=== PATIENT | female | born 1990 | race Caucasian/White ===

== ENCOUNTER 2020-07-08 19:38 | Emergency (ER) | payer BC, SELFPAY ==
--- NOTE | ~2020-07-08 | CT_ITS ---
EXAMINATION: CT abdomen pelvis wo con EXAM DATE: 07/08/2020 20:56 INDICATION: Flank pain. Hematuria. TECHNIQUE: Spiral CT of the abdomen and pelvis was performed without contrast. Axial, coronal and sag ittal images were reviewed. The dose-length product (DLP) for this examination was 213.18 mGy-cm. T he exposure was tailored according to patient size (auto mA exposure control), and iterative reconstr uction (ASIR) was used as additional dose reduction technique. There is no prior study for compariso n. FINDINGS: There is punctate right mid calyceal stone. There are no ureteral stones or hydronephrosis. The uterus is anteverted and morphologically normal. The bladder is unremarkable. The liver, spl een, adrenal glands and pancreas are unremarkable. Gallbladder is unremarkable. No biliary obstruct ion. There is no retroperitoneal or pelvic lymphadenopathy. The appendix is normal. The stomach and small bowel are unremarkable. There is expected amount of c olonic stool. No free intraperitoneal gas. The heart is normal in size. There are no pericardial or pleural effusions. The lung bases are unremarkable. There are no osteoblastic or osteolytic les ions identified. IMPRESSION: 1. Punctate nonobstructing right calyceal stone. 2. No acute findings Reviewed, dictated and finalized at location A.
[2020-07-08 19:40] VITALS: BP 132/100; PULSE 87; RESP 16; TEMP 35.9; O2SAT 100
[2020-07-08 20:18] LABS: Basophils Percent Auto 0.3 % (0.2-1.2); Eosinophils Percent Auto 0.4 % (0-4.4); Hematocrit 45.6 % (37.0-47.0); Hemoglobin 15.2 g/dL (12.0-15.0); Immature Granulocyte Absolute 0.02 K/mm3 (0.00-0.031); Immature Granulocyte Percent A 0.2 % (0-0.5); Lymphocytes Absolute Auto 2.76 K/mm3 (0.9-3.2); Lymphocytes Percent Auto 26.4 % (18.3-44.2); Mean Corpuscular HGB Conc 33.3 g/dl (32-36); Mean Corpuscular Hemoglobin 31.1 pg (26-34); Mean Corpuscular Volume 93.3 fl (80-100); Mean Platelet Volume 10.3 fl (7.4-10.4); Monocytes Absolute Auto 0.7 K/mm3 (0.1-0.6); Neutrophils Absolute Auto 6.9 K/mm3 (1.3-6.7); Neutrophils Percent Auto 65.7 % (45.5-73.1); Platelet Count Result 307 k/mm3 (150-375); Red Blood Count 4.89 M/mm3 (4.2-5.4); Red Cell Distribution Width 11.9 % (11.5-14.5); White Blood Count 10.5 K/mm3 (4.5-10.0)
[2020-07-08 20:23] LABS: Add Urine Microscopic? YES; Appearance Urine Clear (Clear); Bilirubin Urine Negative (Negative); Blood Urine 2+ (Negative); Color Urine Amber (Yellow); Glucose Urine UA Negative (Negative); Ketones Urine 2+ mg/dL (Negative); Leukocyte Esterase Ur Negative LEU/UL (Negative); Mucus Urine Rare /lpf; Nitrate Urine Negative (Negative); Protein Urine Negative (Negative); Specific Grav Ur 1.008 (1.001-1.035); Squamous Epithelial Cell Urine Moderate /hpf (Few); Urobilinogen Urine Negative mg/dL (<2.0); WBC Urine 0-3 /hpf
[2020-07-08] MEDS: ONDANSETRON INJ 4 MG/2 ML VIAL IV PUSH ×2 (20:25→21:22)
[2020-07-08] MEDS: SODIUM CHLORIDE 0.9% IV 1,000 ML 999 ML IV CONT ×2 (20:34→21:22)
[2020-07-08 20:39] LABS: Anion Gap 8 mmol/L (8-16); Blood Urea Nitrogen 5 mg/dL (7-17); Calcium 9.7 mg/dL (8.4-10.2); Carbon Dioxide 29 mmol/L (22-30); Chloride 106 mmol/L (98-107); Estimated CRCL calculation 122 ml/min; Estimated Glomerular Filt Rate > 60; Glucose 98 mg/dL (65-105); Potassium 3.6 mmol/L (3.4-5.0); Sodium 143 mmol/L (137-145)
--- NOTE | 2020-07-08 21:13 | ED.GENADULT ---
HPI - General Adult General Chief complaint: Back Pain/Injury Stated complaint: poss kidney stone Time Seen by Provider: 07/08/20 20:47 Source: patient, RN notes reviewed and old records reviewed History of Present Illness HPI narrative: 29-year-old female presents to emergency department for bilateral low back pain since Sunday. Patient states the pain is worse on the left side. She has never had this in the past before. She took naproxen earlier today to help with the symptoms. Patient was seen in urgent care earlier today, diagnosed with urinary tract infection. No vaginal bleeding or discharge. No urinary symptoms. Patient states she does have some pain intermittently in the lower part of her abdomen. Related Data Allergies Allergy/AdvReac Type Severity Reaction Status Date / Time No Known Allergies Allergy Verified 07/08/20 19:58 Review of Systems Review of Systems: Narrative: CONSTITUTIONAL: Denies fever, chills, or sweats. EYES: Denies visual changes, redness, or discharge. ENT: Denies rhinorrhea, congestion, sore throat, or otalgia. CARDIOVASCULAR: Denies chest pain, palpitations, or edema. RESPIRATORY: Denies cough or dyspnea. GASTROINTESTINAL: Reports intermittent lower abdominal pain, and nausea. No vomiting, or diarrhea. GENITOURINARY: Denies dysuria or hematuria. SKIN: Denies rash or itching. MUSCULOSKELETAL: Reports low back pain bilaterally, no joint pain, or myalgia. NEUROLOGIC: Denies headache, numbness, dizziness, or weakness. PSYCHIATRIC: Denies anxiety or depression. All systems reviewed & are unremarkable except as noted in HPI and below (ROS) Exam Narrative: Exam Narrative: GENERAL: Well-appearing, well-nourished, and in no acute distress. HEAD: Normocephalic, atraumatic. EYES: PERRLA and EOMI. ENT: Nares clear, no rhinorrhea or epistaxis. Mucous membranes moist. NECK: Supple. CHEST: Clear to auscultation. No respiratory distress. HEART: Regular rate and rhythm. No murmur heard. Normal peripheral pulses. ABDOMEN: Soft, nontender, nondistended, normal active bowel sounds. EXTREMITIES: Normal range of motion. No edema. SKIN: Warm, dry, no rash. NEURO: No focal deficits. Alert and oriented x3. PSYCH: Normal mood and affect. Course Course Emergency Course: 22:00 -reevaluated patient, no new complaints. Unremarkable CT scan. Also unremarkable labs. Concerned that patient may have passed a kidney stone. Also concern for musculoskeletal back pain. Counseled patient to follow-up with her medical provider within 1 week. Return to emergency department if symptoms persist, worsen, or other concerns. Vital Signs Vital signs: Vital Signs Temperature 35.9 C L 07/08/20 19:40 Pulse Rate 87 07/08/20 19:40 Respiratory Rate 16 07/08/20 19:40 Blood Pressure 132/100 H 07/08/20 19:40 Pulse Oximetry 100 07/08/20 19:40 Temperature 36.8 C 07/08/20 22:24 Pulse Rate 89 07/08/20 22:24 Respiratory Rate 16 07/08/20 22:24 Blood Pressure 121/74 07/08/20 22:24 Pulse Oximetry 100 07/08/20 22:24 Medical Decision Making Medical Records Medical records reviewed: Yes I reviewed the external patient's medical records. Vital Signs Vital Signs: Vital Signs Temperature 35.9 C L 07/08/20 19:40 Pulse Rate 87 07/08/20 19:40 Respiratory Rate 16 07/08/20 19:40 Blood Pressure 132/100 H 07/08/20 19:40 Pulse Oximetry 100 07/08/20 19:40 Temperature 36.8 C 07/08/20 22:24 Pulse Rate 89 07/08/20 22:24 Respiratory Rate 16 07/08/20 22:24 Blood Pressure 121/74 07/08/20 22:24 Pulse Oximetry 100 07/08/20 22:24 Lab Data Lab results reviewed: Yes I reviewed the patient's lab results. Result diagrams: 07/08/20 20:02 07/08/20 20:02 Labs: Lab Results 07/08/20 07/08/20 07/08/20 Range/Units 20:02 20:02 20:02 WBC 10.5 H (4.5-10.0) K/mm3 RBC 4.89 (4.2-5.4) M/mm3 Hgb 15.2 H (12.0-15.0) g/dL Hct 45.6 (37.0-47.0) %
[2020-07-08] MEDS: KETOROLAC 15 MG/ML VIAL (*BKC) IV PUSH (21:22)
[2020-07-08 22:24] VITALS: BP 121/74; PULSE 89; RESP 16; TEMP 36.8; O2SAT 100
== END 2020-07-08 22:24 | disposition home or self-care (01) ==
PROVIDERS: Emergency Provider Emergency Medicine
DX: M54.5 Low back pain (principal); R10.9 Unspecified abdominal pain; N39.0 Urinary tract infection, site not specified
CPT/HCPCS: 36415; 74176; 80048; 81001; 81025; 85025; 96361; 96374; 96375; 96376; 99284; J1885; J2405; J7030

== ENCOUNTER 2021-05-05 13:57 | Outpatient (CLI) | payer OTHER, SELFPAY ==
[2021-05-05 14:31] LABS: SARS-CoV-2 Ag Positive (Negative)
== END 2021-05-05 13:58 | disposition home or self-care (01) ==
LOC: CHSLAB 14:01
PROVIDERS: PCP Nurse Practitioner Psychiatric/Mental Health; Visit Provider Physician Assistant
DX: U07.1 COVID-19 (principal)
CPT/HCPCS: 87426; C9803